=== PATIENT | male | born 1975 | race Caucasian/White ===

== ENCOUNTER 2016-12-05 15:24 | Emergency (ER) | payer OTHER ==
[2016-12-05 15:37] VITALS: BP 130/78
--- NOTE | 2016-12-05 16:18 | RAD ---
INDICATION: Low back pain. COMPARISON: There are no prior studies available for comparison. TECHNIQUE: AP and lateral views of the lumbar sacral spine were obtained. FINDINGS: The vertebra are in normal alignment. No fracture is seen. There is mild diffuse degenerative disc disease throughout the lumbar spine. IMPRESSION: NO EVIDENCE FOR FRACTURE.
--- NOTE | 2016-12-05 16:20 | RAD ---
INDICATION: Sacrococcygeal injury. COMPARISON: There are no prior studies available for comparison. TECHNIQUE: 3 views of the sacrococcygeal spine were obtained. FINDINGS: The vertebra are in normal alignment. There is a faint radiolucent line extending through the anterior cortex at the sacrococcygeal junction suggestive of a nondisplaced fracture. IMPRESSION: FINDINGS SUGGESTIVE OF A NONDISPLACED FRACTURE AT THE SACROCOCCYGEAL JUNCTION.
--- NOTE | 2016-12-05 16:58 | UC ---
General HPI - HPI Summary HPI Summary: ONE HOUR PRICING CONSULTANT REMOVED TICK FROM UNDERNEATH RIGHT UNDERARM. RED BURNING TENDER AREA WHERE TICK HAD BEEN EMBEDDED <24HRS. NO FEVERS. FEELING 'OUT OF SORTS' SINCE DISCOVERY OF TICK. NO JOINT SWELLING, OR PAIN. - History of Current Complaint Chief Complaint: UCLowerExtremity Stated Complaint: FALL Time Seen by Provider: 12/05/16 15:39 Hx Obtained From: Patient Onset/Duration: Gradual Onset, Lasting Hours Onset Severity: Mild Current Severity: Mild Associated Signs & Symptoms: Negative: Chest Pain, Fever, Headache, Syncope, SOB , Trauma, Weakness - Allergy/Home Medications Allergies/Adverse Reactions: Allergies Allergy/AdvReac Type Severity Reaction Status Date / Time No Known Allergies Allergy Verified 12/05/16 15:31 Home Medications: Home Medications Acetaminophen [Acetaminophen Extra Stren] 2 tab PO QID PRN 12/05/16 [History Confirmed 12/05/16] PMH/Surg Hx/FS Hx/Imm Hx Previously Healthy: Yes - Surgical History Surgical History: Yes Surgery Procedure, Year, and Place: left hand repair after LAC infection; left neck mole - Family History Known Family History: Negative: Respiratory Disease, Blood Disorder - Social History Occupation: Employed Full-time Lives: With Family Alcohol Use: Occasionally Substance Use Type: None Smoking Status (MU): Former Smoker When Did the Patient Quit Smoking/Using Tobacco: 7 yrs Review of Systems Constitutional: Negative Skin: Rash - RIGHT AXILLA Eyes: Negative ENT: Negative Respiratory: Negative Cardiovascular: Negative Gastrointestinal: Negative Genitourinary: Negative Motor: Negative Neurovascular: Negative Musculoskeletal: Negative Neurological: Negative Psychological: Negative Is Patient Immunocompromised?: No All Other Systems Reviewed And Are Negative: Yes Physical Exam Triage Information Reviewed: Yes Appearance: Well-Appearing, No Pain Distress, Well-Nourished Vital Signs: Initial Vital Signs Temp 97.6 F 12/05/16 15:32 Pulse 74 12/05/16 15:32 Resp 16 12/05/16 15:32 BP 130/78 12/05/16 15:32 Vital Signs Reviewed: Yes Eye Exam: Normal ENT Exam: Normal ENT: Positive: Normal ENT inspection, Hearing grossly normal, TMs normal Dental Exam: Normal Neck exam: Normal Neck: Positive: Supple, Nontender, No Lymphadenopathy Respiratory Exam: Normal Respiratory: Positive: Chest non-tender, Lungs clear, Normal breath sounds, No respiratory distress Cardiovascular Exam: Normal Cardiovascular: Positive: RRR, No Murmur, Pulses Normal Abdominal Exam: Normal Musculoskeletal Exam: Normal Musculoskeletal: Positive: Strength Intact, ROM Intact Neurological Exam: Normal Psychological Exam: Normal Skin: Positive: rashes - ERYTHEMATOUS 0.5CM X0.5CM AREA IN RIGHT AXILLA WHERE TICK HAD BEEN EMBEDDED Course/Dx - Differential Dx - Multi-Symptom Differential Diagnoses: Metabolic Abnormality, Sepsis Provider Diagnoses: TICK BITE PROPHLAXIS Discharge - Discharge Plan Condition: Stable Disposition: HOME Prescriptions: HYDROcodone/ACETAMIN 5-325 MG* [[place] 5-325 TAB*] 1 tab PO Q8H PRN #12 tab MDD THREE TABS PRN Reason: Pain Patient Education Materials: Coccyx Injury (ED) Forms: *Work Release Referrals: [facility] [place] [facility] [Outside] Freddy Leary MD [Medical Doctor] - No Primary Care Phys,NOPCP [Primary Care Provider] - Images Front/Back of Body, Lg (Carter): 1 - ERYTHEMATOUS 0.5CM X0.5CM AREA IN RIGHT AXILLA WHERE TICK HAD BEEN EMBEDDED
--- NOTE | 2016-12-05 17:08 | UC ---
Back Pain HPI - HPI Summary HPI Summary: SIX DAYS AUTOCAD SLIPPED ON LEAVES, PAIN IN TAILBONE SINCE INJURY. NO BRUISING. NO SWELLING. NO LOSS OF CONTROL OF BLADDER OR BOWELS. - History of Current Complaint Chief Complaint: UCLowerExtremity Stated Complaint: FALL Time Seen by Provider: 12/05/16 15:39 Hx Obtained From: Patient Onset/Duration: Sudden Onset, Lasting Days Pain Intensity: 6 Pain Scale Used: 0-10 Numeric Character: Dull, Aching Aggravating Factor(s): Movement, Bending Associated Signs And Symptoms: Positive: Pain with Weight Bearing. Negative: Swelling, Bruising, Bladder Incontinence, Bowel Incontinence - Risk Factors AAA Risk Factors: Negative TAD Risk Factors: Negative Cauda Equina Risk Factors: Negative Epidural Abscess Risk Factors: Negative - Allergies/Home Medications Allergies/Adverse Reactions: Allergies Allergy/AdvReac Type Severity Reaction Status Date / Time No Known Allergies Allergy Verified 12/05/16 15:31 Home Medications: Home Medications Acetaminophen [Acetaminophen Extra Stren] 2 tab PO QID PRN 12/05/16 [History Confirmed 12/05/16] PMH/Surg Hx/FS Hx/Imm Hx Previously Healthy: Yes - Surgical History Surgical History: Yes Surgery Procedure, Year, and Place: left hand repair after LAC infection; left neck mole - Family History Known Family History: Negative: Respiratory Disease, Blood Disorder - Social History Occupation: Employed Full-time Lives: With Family Alcohol Use: Occasionally Substance Use Type: None Smoking Status (MU): Former Smoker When Did the Patient Quit Smoking/Using Tobacco: 7 yrs Review of Systems Constitutional: Negative Skin: Negative Eyes: Negative ENT: Negative Respiratory: Negative Cardiovascular: Negative Gastrointestinal: Negative Genitourinary: Negative Motor: Negative Neurovascular: Negative Musculoskeletal: Arthralgia, Myalgia Neurological: Negative Psychological: Negative All Other Systems Reviewed And Are Negative: Yes Physical Exam Triage Information Reviewed: Yes Appearance: Well-Appearing, Well-Nourished, Pain Distress Vital Signs: Initial Vital Signs Temp 97.6 F 12/05/16 15:32 Pulse 74 12/05/16 15:32 Resp 16 12/05/16 15:32 BP 130/78 12/05/16 15:32 Vital Signs Reviewed: Yes Eye Exam: Normal ENT Exam: Normal ENT: Positive: Normal ENT inspection, Hearing grossly normal, TMs normal Dental Exam: Normal Neck exam: Normal Neck: Positive: Supple, Nontender, No Lymphadenopathy Respiratory Exam: Normal Respiratory: Positive: Chest non-tender, Lungs clear, Normal breath sounds, No respiratory distress Cardiovascular Exam: Normal Cardiovascular: Positive: RRR, No Murmur, Pulses Normal Abdominal Exam: Normal Abdomen Description: Positive: Nontender, No Organomegaly, Soft Musculoskeletal: Positive: Strength Intact, ROM Intact, No Edema, Other: - TENDERNESS ON BILATERAL GLUTEAL MUSCLES Neurological Exam: Normal Psychological Exam: Normal Skin Exam: Normal Back Pain Course/Dx - Differential Dx/Diagnosis Differential Diagnosis/HQI/PQRI: Fracture, Strain, Sprain Provider Diagnoses: CLOSED NONDISPLACED FRACTURE AT SACROCOCCYGEAL JUNCTION Discharge - Discharge Plan Condition: Stable Disposition: HOME Prescriptions: HYDROcodone/ACETAMIN 5-325 MG* [[place] 5-325 TAB*] 1 tab PO Q8H PRN #12 tab MDD THREE TABS PRN Reason: Pain Patient Education Materials: Coccyx Injury (ED) Forms: *Work Release Referrals: [facility] [place] [facility] [Outside] Freddy Leary MD [Medical Doctor] - No Primary Care Phys,NOPCP [Primary Care Provider] -
== END 2016-12-05 16:56 | disposition home or self-care (01) ==
LOC: UCEAST 15:24
DX: S32.2XXA Fracture of coccyx, initial encounter for closed fracture (principal); W01.0XXA Fall on same level from slipping, tripping and stumbling without subsequent striking against object, initial encounter; Y93.9 Activity, unspecified; Y92.9 Unspecified place or not applicable; Y99.9 Unspecified external cause status
CPT/HCPCS: 72100; 72220; 99212; G0463

== ENCOUNTER 2018-07-24 19:32 | Emergency (ER) | payer OTHER ==
[2018-07-24 20:03] VITALS: BP 126/83
[2018-07-24] MEDS ORDERED: Amoxicillin/Clavulanate TAB* 875 MG PO ONE (20:56)
--- NOTE | 2018-07-24 20:58 | ED ---
Throat Pain/Nasal Congestion - HPI Summary HPI Summary: 42 yr old with left maxillar sinus pain, pressure, and frontal sinus pain. He has had runny nose, and also with coughing. He has muscle aches. T max was 100.1. No other complaints. - History of Current Complaint Chief Complaint: UCRespiratory Time Seen by Provider: 07/24/18 20:34 - Allergies/Home Medications Allergies/Adverse Reactions: Allergies Allergy/AdvReac Type Severity Reaction Status Date / Time No Known Allergies Allergy Verified 07/24/18 20:03 Home Medications: Home Medications guaiFENesin [Mucinex] 600 mg PO 07/24/18 [History] PMH/Surg Hx/FS Hx/Imm Hx Endocrine/Hematology History: Denies: Hx Diabetes, Hx Thyroid Disease Cardiovascular History: Denies: Hx Hypertension Respiratory History: Denies: Hx Asthma, Hx Chronic Obstructive Pulmonary Disease (COPD) GI History: Denies: Hx Ulcer - Surgical History Surgery Procedure, Year, and Place: left hand repair after LAC infection; left neck mole Infectious Disease History: No Infectious Disease History: Denies: Hx Clostridium Difficile, Hx Hepatitis, Hx Human Immunodeficiency Virus (HIV), Hx of Known/Suspected MRSA, Hx Shingles, Hx Tuberculosis, Hx Known/ Suspected VRE, Hx Known/Suspected VRSA, History Other Infectious Disease, Traveled Outside the [place] in Last 30 Days - Family History Known Family History: Positive: None Negative: Respiratory Disease, Blood Disorder - Social History Occupation: Employed Full-time Alcohol Use: None Substance Use Type: Reports: None Smoking Status (MU): Former Smoker Review of Systems Positive: Fever Positive: Nasal Discharge Positive: Cough All Other Systems Reviewed And Are Negative: Yes Physical Exam Triage Information Reviewed: Yes Vital Signs On Initial Exam: Initial Vitals Temp Pulse Resp BP Pulse Ox 99.9 F 82 18 126/83 98 07/24/18 20:01 07/24/18 20:01 07/24/18 20:01 07/24/18 20:01 07/24/18 20:01 Vital Signs Reviewed: Yes Appearance: Positive: Well-Appearing, No Pain Distress Skin: Positive: Warm, Skin Color Reflects Adequate Perfusion Head/Face: Positive: Normal Head/Face Inspection ENT: Positive: Normal ENT inspection, Pharyngeal erythema, Nasal congestion, Nasal drainage, TM red - right, Sinus tenderness Neck: Positive: Supple, Nontender. Negative: Nuchal Rigidity Respiratory/Lung Sounds: Positive: Clear to Auscultation, Breath Sounds Present Cardiovascular: Positive: RRR. Negative: Murmur Abdomen Description: Negative: Distended Musculoskeletal: Positive: Strength/ROM Intact Neurological: Positive: Sensory/Motor Intact, Alert, Oriented to Person Place, Time, CN Intact II-III, Normal Gait, Speech Normal Psychiatric: Positive: Normal Diagnostics - Vital Signs Vital Signs Temp Pulse Resp BP Pulse Ox 07/24/18 20:01 99.9 F 82 18 126/83 98 - Laboratory Lab Statement: Any lab studies that have been ordered have been reviewed, and results considered in the medical decision making process. EENT Course/Dx - Course Course Of Treatment: 42 yr old with sinusitis, and right OM. DC home on Augmentin. - Diagnoses Provider Diagnoses: Sinusitis, Otitis media, right Discharge - Sign-Out/Discharge Documenting (check all that apply): Patient Departure All imaging exams completed and their final reports reviewed: No Studies - Discharge Plan Condition: Good Disposition: HOME Prescriptions: Amoxicillin/Clavulanate TAB* [Augmentin TAB 875*] 875 mg PO BID #20 tab Patient Education Materials: Sinusitis (ED) Forms: *Work Release Referrals: Linda Lenz PA [Primary Care Provider] - 2 Days - Billing Disposition and Condition Condition: GOOD Disposition: Home
== END 2018-07-24 21:05 | disposition home or self-care (01) ==
LOC: UCEAST 19:32
DX: J32.9 Chronic sinusitis, unspecified (principal); H66.91 Otitis media, unspecified, right ear; Z87.891 Personal history of nicotine dependence
CPT/HCPCS: 99212; A9270-GY; G0463

== ENCOUNTER 2018-10-29 16:40 | Emergency (ER) | payer OTHER ==
[2018-10-29 16:46] VITALS: BP 136/93
--- NOTE | 2018-10-29 17:00 | UC ---
Abdominal Pain Male HPI - HPI Summary HPI Summary: Reports 2 days of watery diarrhea and worsening epigastric pain. Pain has worsened over the past 2 hrs. Denies any other sick contacts. denies blood in stool or vomiting but states he is nauseas. DENIES DAILY NSAIDS, SMOKING OR ETOH. - History of Current Complaint Chief Complaint: UCAbdominalPain Stated Complaint: ABD PAIN Time Seen by Provider: 10/29/18 16:50 Hx Obtained From: Patient Pain Intensity: 5 Pain Scale Used: 0-10 Numeric Character: Aching, Sharp Aggravating Factor(s): Nothing Alleviating Factor(s): Nothing Associated Signs And Symptoms: Positive: Diaphoresis, Diarrhea. Negative: Fever , Blood in Stool - Allergies/Home Medications Allergies/Adverse Reactions: Allergies Allergy/AdvReac Type Severity Reaction Status Date / Time pineapple Allergy Swelling Verified 10/29/18 19:30 Of Face,Lips,& Throat PMH/Surg Hx/FS Hx/Imm Hx - Additional Past Medical History Additional PMH: no chronic conditions Previously Healthy: Yes - Surgical History Surgical History: Yes Surgery Procedure, Year, and Place: left hand repair after LAC infection; left neck mole - Family History Known Family History: Positive: None Negative: Respiratory Disease, Blood Disorder - Social History Alcohol Use: None Substance Use Type: None Smoking Status (MU): Former Smoker When Did the Patient Quit Smoking/Using Tobacco: 7 yrs Review of Systems All Other Systems Reviewed And Are Negative: Yes Constitutional: Positive: Fever, Chills. Negative: Fatigue Respiratory: Negative: Shortness Of Breath, Cough Gastrointestinal: Positive: Abdominal Pain, Diarrhea - watery, Nausea Genitourinary: Negative: Dysuria Musculoskeletal: Negative: Myalgia Neurological: Positive: Weakness. Negative: Paresthesia, Numbness Physical Exam Triage Information Reviewed: Yes Appearance: Pain Distress, Other: - PALE,diaphoresis Vital Signs: Initial Vital Signs Temp 96.9 F 10/29/18 16:44 Pulse 136 10/29/18 16:44 Resp 16 10/29/18 16:44 BP 136/93 10/29/18 16:44 Pulse Ox 96 10/29/18 16:44 Vital Signs Reviewed: Yes Respiratory Exam: Normal Cardiovascular Exam: Normal Abdomen Description: Positive: Soft, Other: - +EPIGASTRIC TENDERNESS. Negative : CVA Tenderness (R), CVA Tenderness (L), Distended, Guarding, Pulsatile Mass Musculoskeletal: Positive: No Edema Neurological: Positive: Alert, Other: - NORMAL SPEECH Skin: Negative: Rashes Abd Pain Male Course/Dx - Course Course Of Treatment: Watery diarrhea and epigastric pain x2 days but worsening x2 hrs. Not thought to be related to etoh, nsaids. He was diaphoretic and it was decided an EKG should be done for full eval: this was unremarkable and reviewed by Dr. Head. We were able to give him zofran. I offered Since we were unable to get CT at this site it was thought that sending him to ED would be best to r/o ulcer or diverticulitis. He has declined ambulance and he will have his take him to ED. He is stable. - Differential Dx/Clinical Impression Differential Diagnosis/HQI/PQRI: Gall Bladder Disease, Hepatitis, Ischemic Bowel , Pancreatitis Provider Diagnosis: Epigastric pain, Diarrhea Discharge ED - Sign-Out/Discharge Documenting (check all that apply): Patient Departure All imaging exams completed and their final reports reviewed: No Studies - Discharge Plan Condition: Stable Disposition: HOME-RECOMMEND TO ED Patient Education Materials: Epigastric Pain (ED) Referrals: Linda Lenz PA [Primary Care Provider] - Additional Instructions: please go directly to the emergency room. - Billing Disposition and Condition Condition: STABLE Disposition: Home-Recommend to ED
[2018-10-29] MEDS ORDERED: Ondansetron ODT TAB* 4 MG SL PRN (17:24)
[2018-10-29] MEDS ORDERED: Ondansetron ODT TAB* 4 MG ONE (17:31)
== END 2018-10-29 17:32 | disposition home health service (06) ==
LOC: UCEAST 16:40
DX: R10.13 Epigastric pain (principal); R19.7 Diarrhea, unspecified; Z87.891 Personal history of nicotine dependence
CPT/HCPCS: 99212; A9270-GY; G0463

== ENCOUNTER 2018-10-29 17:48 | Emergency (ER) | payer OTHER, BC ==
--- NOTE | 2018-10-29 19:27 | ED ---
GI/ HPI - HPI Summary HPI Summary: Patient is a 43 y/o M presenting to [facility] with complaints of abdominal pain, nausea, and diarrhea. He states that he has had multiple episodes of diarrhea throughout the day. Patient reports that abdominal pain onset around 35 minutes after first episode of diarrhea. Abdominal pain is at upper abdomen constantly and intermittently at lower abdomen. He characterizes the pain as a cramping and notes that it is constantly present but waxes and wanes in intensity. Patient went to [facility] [address] earlier today, 10/29/18, and was sent to [facility] for further evaluation. He notes that he has been nauseous as well and states that the Zofran he had received at [facility] has alleviated this Sx. Patient denies presence of Sx yesterday. He states that he went apple picking yesterday, 10/28/18, but denies having eaten any apples. Patient went to dinner at [facility] yesterday as well. Patient denies fever. No Hx of diabetes, HTN, colitis, ulcers , diverticulitis is reported. He denies any past abdominal surgeries and notes that he still has his appendix. On triage, pain is rated 4/10, nothing is noted to aggravate/alleviate Sx. Home medications and allergies are reviewed. - History of Current Complaint Chief Complaint: EDAbdPain Time Seen by Provider: 10/29/18 19:20 Stated Complaint: UPPER STOMACH PAIN SENT FROM Hx Obtained From: Patient Onset/Duration: Started Hours Ago, Still Present Timing: Constant, Lasting Hours Current Severity: Moderate Pain Intensity: 4 Location of Pain: Other - upper abdomen Pain Characteristics: Cramping Associated Signs and Symptoms: Positive: Nausea, Diarrhea, Abdominal Pain. Negative: Fever Aggravating Factor(s): Nothing Alleviating Factor(s): Medication - zofran - Allergy/Home Medications Allergies/Adverse Reactions: Allergies Allergy/AdvReac Type Severity Reaction Status Date / Time pineapple Allergy Swelling Verified 10/29/18 19:30 Of Face,Lips,& Throat PMH/Surg Hx/FS Hx/Imm Hx Endocrine/Hematology History: Denies: Hx Diabetes, Hx Thyroid Disease Cardiovascular History: Denies: Hx Hypertension Respiratory History: Denies: Hx Asthma, Hx Chronic Obstructive Pulmonary Disease (COPD) GI History: Denies: Hx Ulcer - Surgical History Surgery Procedure, Year, and Place: left hand repair after LAC infection; left neck mole Infectious Disease History: No Infectious Disease History: Denies: Hx Clostridium Difficile, Hx Hepatitis, Hx Human Immunodeficiency Virus (HIV), Hx of Known/Suspected MRSA, Hx Shingles, Hx Tuberculosis, Hx Known/ Suspected VRE, Hx Known/Suspected VRSA, History Other Infectious Disease, Traveled Outside the [place] in Last 30 Days - Family History Known Family History: Negative: Respiratory Disease, Blood Disorder - Social History Alcohol Use: None Substance Use Type: Reports: None Smoking Status (MU): Former Smoker Review of Systems Negative: Fever Positive: Abdominal Pain, Diarrhea, Nausea All Other Systems Reviewed And Are Negative: Yes Physical Exam - Summary Physical Exam Summary: Appearance: Well-appearing, Well-nourished, lying in bed comfortably Skin: Warm, dry, no obvious rash Eyes: sclera anicteric, no conjunctival pallor ENT: mucous membranes moist, pharynx appears normal Neck: Supple, nontender Respiratory: Clear to auscultation, no signs of respiratory distress Cardiovascular: Normal S1, S2. No murmurs. Normal distal pulses in tibial and radial bilaterally. Abdomen: Soft, nontender, normal active bowel sounds present Musculoskeletal: Normal, Strength/ROM Intact Neurological: A&Ox3, awake and alert, mentation is normal, speech is fluent and appropriate Psychiatric: affect is normal, does not appear anxious or depressed Triage Information Reviewed: Yes Vital Signs On Initial Exam: Initial Vitals Temp Pulse Resp BP Pulse Ox 97.1 F 83 18 143/97 97 10/29/18 17:59 10/29/18 17:59 10/29/18 17:59 10/29/18 17:59 10/29/18 17:59 Vital Signs Reviewed: Yes Diagnostics - Vital Signs Vital Signs Temp Pulse Resp BP Pulse Ox 10/29/18 17:59 97.1 F 83 18 143/97 97 - Laboratory Result Diagrams: 10/29/18 20:12 10/29/18 20:12 Lab Statement: Any lab studies that have been ordered have been reviewed, and results considered in the medical decision making process. GIGU Course/Dx - Course Course Of Treatment: Patient is a 43 y/o M presenting to [facility] with complaints of abdominal pain, nausea, and diarrhea. He states that he has had multiple episodes of diarrhea throughout the day. Patient reports that abdominal pain onset around 35 minutes after first episode of diarrhea. Abdominal pain is at upper abdomen constantly and intermittently at lower abdomen. He characterizes the pain as a cramping and notes that it is constantly present but waxes and wanes in intensity. Patient went to [facility] earlier today, 10/29/18, and was sent to [facility] for further evaluation. He notes that he has been nauseous as well and states that the Zofran he had received at [facility] has alleviated this Sx. Patient denies presence of Sx yesterday. He states that he went apple picking yesterday , 10/28/18, but denies having eaten any apples. Patient went to dinner at [facility] yesterday as well. Patient denies fever. No Hx of diabetes, HTN, colitis, ulcers, diverticulitis is reported. He denies any past abdominal surgeries and notes that he still has his appendix. Physical exam is unremarkable. Bloodwork was obtained. Abnormal values include WBC 11.1, RBC 5.86 , absolute neuts 9.7, absolute lymphs 0.9, glucose 144. He was given Lomotil, 2 tabs, and Bentyl, 10 mg PO. Stool culture was obtained, patient will be called with any positive results. Patient was discharged to home with prescriptions for Lomotil, Bentyl and Zofran. - Diagnoses Provider Diagnoses: Diarrhea Discharge ED - Sign-Out/Discharge Documenting (check all that apply): Patient Departure - discharge Patient Received Moderate/Deep Sedation with Procedure: No - Discharge Plan Condition: Good Disposition: HOME Prescriptions: Dicyclomine CAP* [Bentyl CAP*] 10 mg PO ACHS PRN #12 cap PRN Reason: Pain - Moderate Diphenoxylat/Atrop 2.5-0.025M* [Lomotil TAB*] 1 tab PO QID PRN #12 tab MDD 4 PRN Reason: Diarrhea Ondansetron ODT TAB* [Zofran 4 MG Odt TAB*] 8 mg PO Q6H PRN #10 tab.odt PRN Reason: Nausea Patient Education Materials: Gastroenteritis (ED) Referrals: Linda Lenz PA [Primary Care Provider] - 3 Days (if not better) - Billing Disposition and Condition Condition: GOOD Disposition: Home - Attestation Statements Document Initiated by Scribe: Yes Documenting Scribe: ALANNA WILHELM Provider For Whom Scribe is Documenting (Include Credential): CHITO BETANCOURT MD Scribe Attestation: I, ALANNA WILHELM, scribed for CHITO BETANCOURT MD on 10/30/18 at 0622. Scribe Documentation Reviewed: Yes Provider Attestation: The documentation as recorded by the scribeALANNA accurately reflects the service I personally performed and the decisions made by me, CHITO BETANCOURT MD Status of Scribe Document: Viewed
[2018-10-29] MEDS ORDERED: Dicyclomine CAP* 10 MG PO ONE (19:29)
[2018-10-29] MEDS ORDERED: Diphenoxylat/Atrop 2.5-0.025M* 1 TAB PO ONE (19:29)
[2018-10-29 20:19] LABS: ABS Eosinophils 0.1 10^3/ul (0-0.6); ABS Lymphocytes 0.9 10^3/ul (1.0-4.8); ABS Monocytes 0.5 10^3/ul (0-0.8); ABS Neutrophils 9.7 10^3/ul (1.5-7.7); ABS Nucleated RBC 0.1 10^3/ul; Eosinophil % 0.5 %; Hematocrit 48 % (42-52); Hemoglobin 16.5 g/dL (14.0-18.0); Lymphocyte % 7.7 %; Mean Corpuscular HGB Conc 34 g/dL (31-36); Mean Corpuscular Hemoglobin 28 pg (27-31); Mean Corpuscular Volume 82 fL (80-94); Nucleated Red Blood Cells % 0.6; Platelet Count 194 10^3/uL (150-450); Red Blood Count 5.86 10^6 /uL (4.18-5.48); Red Cell Distribution Width 13 % (10-15); White Blood Count 11.1 10^3/uL (3.5-10.8)
[2018-10-29 20:35] LABS: Albumin 4.4 g/dL (3.2-5.2); Albumin/Globulin Ratio 1.6 (1-3); BUN/Creatinine Ratio 13.3 (8-20); Calcium 9.4 mg/dL (8.6-10.3); EGFR African American 100.1 (>60); EGFR Non-African American 82.7 (>60); Globulin 2.7 g/dL (2-4); Potassium 4.1 mmol/L (3.5-5.0); Total Bilirubin 0.5 mg/dL (0.2-1.0); Total Protein 7.1 g/dL (6.4-8.9)
[2018-10-29 21:01] LABS: Urine Appearance Cloudy; Urine Bacteria Absent (Absent); Urine Bilirubin Negative (Negative); Urine Blood 2+ (Negative); Urine Color Yellow; Urine Glucose Negative (Negative); Urine Ketones Negative (Negative); Urine Nitrite Negative (Negative); Urine Protein Negative (Negative); Urine Red Blood Cell 1+(3-5/hpf) (Absent); Urine Specific Gravity 1.024 (1.010-1.030); Urine Urobilinogen Negative (Negative); Urine White Blood Cell Trace(0-5/hpf) (Absent)
[2018-10-29 21:02] VITALS: BP 153/90
== END 2018-10-29 21:06 | disposition home or self-care (01) ==
LOC: ED 17:48
DX: R19.7 Diarrhea, unspecified (principal); R11.0 Nausea; R10.10 Upper abdominal pain, unspecified; R10.30 Lower abdominal pain, unspecified; Z91.018 Allergy to other foods; Z87.891 Personal history of nicotine dependence
CPT/HCPCS: 36415; 80053; 81003; 81015; 83690; 85025; 87045; 87046; 87086; 87493; 87899; 99283; A9270-GY

== ENCOUNTER 2019-03-29 10:09 | Emergency (ER) | payer OTHER, BC ==
[2019-03-29 11:16] VITALS: BP 129/79
--- NOTE | 2019-03-29 11:29 | UC ---
Throat Pain/Nasal Kvng HPI - HPI Summary HPI Summary: 43-year-old male presenting with nasal congestion and sinus pressure 2 days. Also notes productive cough and postnasal drip. Denies shortness of breath or wheezing. Unsure fevers but believes he may have had one last night. Denies body aches. Denies nausea and vomiting. Denies taking anything for symptomatic relief. 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 Negative: Sore Throat, Ear Ache Respiratory: Positive: Cough - productive. Negative: Shortness Of Breath Cardiovascular: Positive: Negative Gastrointestinal: Positive: Negative Musculoskeletal: Negative: Myalgia Neurological: Positive: Negative Physical Exam - Summary Physical Exam Summary: Vital Signs Reviewed: Yes A+Ox3, no distress Eyes: Conjunctiva Clear ENT: Hearing grossly normal, right TM clear, left TM unable to visualize d/t cerumen impaction - cerumen removal revealed clear TM, +PND, moist, uvula midline, no exudate, +pharyngeal erythema Neck: Positive: Supple Respiratory: Positive: No respiratory distress, No accessory muscle use + CTA throughout no w/r Cardiovascular: RRR nl s1, s2 no m/r Musculoskeletal Exam: LAIRD x 4 without difficulty Neurological: Positive: Alert Psychological: Positive: age appropriate behavior Skin: Positive: no rash, no ecchymosis Vital Signs: Initial Vital Signs Temp 98.9 F 03/29/19 11:11 Pulse 74 02/06/20 11:11 Resp 20 03/29/19 11:11 BP 129/79 03/29/19 11:11 Pulse Ox 95 03/29/19 11:11 Lab Results 03/29/19 Range/Units 11:48 Influenza A (Rapid) Negative (Negative) Influenza B (Rapid) Negative (Negative) Throat Pain/Nasal Course/Dx - Course Course Of Treatment: Negative rapid flu. Left ear irrigation performed for cerumen impaction left ear. TMs normal bilaterally. Dictated on cerumen impaction and instructed to decrease use of ear buds and not to place any objects in the ears including Q- tips. Discussed viral illness patient and educated on symptomatic treatment. Instructed to follow up with PCP or [facility] if symptoms worsen or do not improve within 7-10 days. Patient voiced understanding and agreed with the treatment plan. - Differential Dx/Diagnosis Differential Diagnosis/HQI/PQRI: Influenza, Sinusitis, URI Provider Diagnosis: Viral URI, Acute bronchitis Discharge ED - Sign-Out/Discharge Documenting (check all that apply): Patient Departure All imaging exams completed and their final reports reviewed: No Studies - Discharge Plan Condition: Stable Disposition: HOME Patient Education Materials: Cerumen Impaction (ED), Upper Respiratory Infection (ED), Acute Bronchitis (ED) Referrals: [facility] [Outside] - If Needed Linda Lenz PA [Primary Care Provider] - If Needed Additional Instructions: Your flu test was negative today. Your symptoms are likely caused by a virus and should resolve without treatment. Continue to take mucinex as directed for congestion relief. You may also use nasal saline spray or Flonase. You may take over the counter pain medications as directed for pain relief. Increase your fluid intake. Follow up with your primary care provider or the [facility] clinic listed below if your symptoms worsen or do not resolve within 7-10 days. - Billing Disposition and Condition Condition: STABLE Disposition: Home
[2019-03-29 11:59] LABS: Influenza A Molecular Negative (Negative); Influenza B Molecular Negative (Negative)
== END 2019-03-29 12:15 | disposition home or self-care (01) ==
LOC: UCEAST 10:09
DX: J06.9 Acute upper respiratory infection, unspecified (principal); J20.9 Acute bronchitis, unspecified; Z91.018 Allergy to other foods
CPT/HCPCS: 99212; G0463